=== PATIENT | male | born 1990 | race Caucasian/White ===

== ENCOUNTER 2016-07-19 12:45 | Emergency (ER) | payer OTHER ==
[~2016-07-19] VITALS: Ht 180.3 cm; Wt 107.5 kg
[~2016-07-19 12:45] MED LIST: BEN50 PO; CLOT30CR24 TOP; FL.05O60 TOP
[2016-07-19 13:04] VITALS: Ht 180.3 cm; Wt 107.5 kg
[2016-07-19] MEDS ORDERED: BEN50 PO (13:46)
[2016-07-19] MEDS ORDERED: PRED20TA PO (13:46)
--- NOTE | 2016-07-19 13:52 | ERD ---
ER Documentation Chief Complaint Date/Time DATE: 07/19/16 TIME: 13:48 Chief Complaint FULL BODY RASH X2 DAYS HPI [id number] male presents to the emergency department today complaining of a rash with a plastic months. Patient states he went to a production utility worker approximately one month ago and was given triamcinolone cream. States that the rash was on his hands and feet and his groin area. He states that he has any rash on the left side of his neck that is itching him and really bothering him. States he has been given Clortrimazole and clobetasol for the rash. Denies fevers or chills, chest pain or shortness of breath. ROS All systems reviewed and are negative except as per history of present illness. Medications Home Meds Active Scripts Diphenhydramine Hcl* (Benadryl*) 50 Mg Cap, 50 MG PO Q6 Y for ITCHING, #30 CAP Prov:AYDEE KEN PA-C 07/19/16 Prednisone* (Prednisone*) 20 Mg Tab, 40 MG PO DAILY for 5 Days, TAB Prov:AYDEE KEN PA-C 07/19/16 Clotrimazole* (Clotrimazole* AF) 1% - 30 Gm Cream.gm., 1 APPLIC TOP BID for 7 Days, TUB Prov:BRANDON DEE 06/08/16 Fluocinonide* (Lidex* Oint) 60 Gm Oint, 1 APPLIC TOP BID for 3 Days, EA Prov:BRANDON DEE 06/08/16 Diphenhydramine Hcl* (Benadryl*) 50 Mg Cap, 50 MG PO Q6H Y for ITCHING/RASH, # 30 CAP Prov:YARON CHILDERS PA-C 04/10/16 Clotrimazole* (Clotrimazole* AF) 1% - 30 Gm Cream.gm., 1 APPLIC TOP BID for 7 Days, TUB Prov:YARON CHILDERS PA-C 04/10/16 Allergies Allergies: Coded Allergies: No Known Allergy (Unverified , 04/10/16) PMhx/Soc History of Surgery: No Anesthesia Reaction: No Hx Neurological Disorder: No Hx Respiratory Disorders: No Hx Cardiac Disorders: No Hx Psychiatric Problems: No Hx Miscellaneous Medical Probl: No Hx Alcohol Use: Yes Hx Substance Use: No Hx Tobacco Use: Yes Smoking Status: Current some day smoker Physical Exam Vitals Vital Signs Date Time Temp Pulse Resp B/P Pulse Ox O2 Delivery O2 Flow Rate FiO2 07/19/16 13:04 98.0 90 16 144/98 97 Physical Exam Const: No acute distress, talkative Head: Atraumatic Eyes: Normal Conjunctiva ENT: Normal External Ears, Nose and Mouth. Neck: Full range of motion..~ No meningismus. Resp: Clear to auscultation bilaterally Cardio: Regular rate and rhythm, no murmurs Abd: Soft, non tender, non distended. Normal bowel sounds Skin: On the rash in groin area and on the feet with scaling and dried skin.left side of neck with erythematous rash that appears to be eczema. Back: No midline or flank tenderness Ext: No cyanosis, or edema Neur: Awake and alert Psych: Normal Mood and Affect Procedures/MDM This 25-year-old male who presents to the emergency department today complaining of a rash. Patient had a fungal rash for the past 6 months and has been seen by production utility worker and given medication. Patient has a new rash on the left side of his neck that appears to be eczema at this time. Rash does not appear to be fungal. Patient is afebrile and otherwise well-appearing.Low suspicion for Sepsis, cellulitis, SJS, deep space infection, viral exanthem. Vision is talkative in the exam room. His oxygen saturation is 97%. There is no evidence of anaphylaxis or angioedema. Patient was given a prescription for Benadryl and course of prednisone. Patient was instructed to follow-up with dermatology. I have given him a list of resources. At this time the patient is stable for discharge and outpatient management. Patient should follow up with their PCP in the next 1-2 days. They may return to the emergency department sooner for any persistent or worsening of symptoms. Patient understood and agreed with the plan. Dr. Mahoney has seen and evaluated the patient and he is in agreement with plan. Departure Diagnosis: Primary Impression: Rash and other nonspecific skin eruption Condition: Fair Patient Instructions: Self-Care for Skin Rashes Referrals: IRENA FISCHER MD,ELIZABETH WALTERS,RAJAN KRISHNA,RONALDO LÓPEZ,SHAHRAM STAFFORD,RAINA HERNANDEZ Additional Instructions: Call your primary care doctor TOMORROW for an appointment during the next 1-2 days for referral back to dermatology.See the doctor sooner or return here if your condition worsens before your appointment time. Make an appointment with production utility worker Take prednisone as prescribed Benadryl for itching. Do not drive while taking this medication. AYDEE KEN PA-C Jul 19, 2016 13:52
== END 2016-07-19 14:01 | disposition home or self-care (01) ==
LOC: FTE 12:45
DX: R21 Rash and other nonspecific skin eruption (principal); F17.210 Nicotine dependence, cigarettes, uncomplicated
CPT/HCPCS: 99283

== ENCOUNTER 2017-03-21 11:28 | Emergency (ER) | payer OTHER ==
[~2017-03-21] VITALS: Ht 182.9 cm; Wt 99.5 kg
[~2017-03-21 11:28] MED LIST changes: +PRED20TA PO
[2017-03-21 11:30] VITALS: Ht 182.9 cm; Wt 99.5 kg
[2017-03-21] MEDS ORDERED: DIPHENHYDRAMINE 25 MG CAP PO ONE (12:30)
[2017-03-21] MEDS ORDERED: FAMOTIDINE 20 MG TAB PO ONE (12:30)
[2017-03-21] MEDS ORDERED: predniSONE 20 MG TAB PO ONE (12:30)
[2017-03-21] MEDS ORDERED: MED4DP PO (12:40)
[2017-03-21] MEDS ORDERED: BEN25 PO (12:41)
[2017-03-21] MEDS ORDERED: FAMO-96 PO (12:41)
--- NOTE | 2017-03-21 14:43 | ERD ---
ER Documentation Chief Complaint Date/Time DATE: 03/21/17 TIME: 14:40 Chief Complaint RASH ON CHEST AND B/L HANDS SINCE WEDNESDAY HPI This is a 26-year-old male presents to the ER with a rash that started on . Patient works in [employer] states he has got allergic reactions in the past and this is similar. Rash is located on his chest, stomach, back and on his dorsal hands. Rash is very itchy. Patient has not taken anything for the rash. Patient states that being out in the sun makes it worse. Patient denies any facial swelling or difficulty in breathing or chest pain.He has not had any fevers or chills. ROS 12 point review of systems was done, all negative except per HPI. Medications Home Meds Active Scripts Famotidine* (Pepcid*) 20 Mg Tablet, 20 MG PO BID for 4 Days, TAB Prov:BRANDON DEE 03/21/17 Diphenhydramine Hcl* (Benadryl*) 25 Mg Cap, 25 MG PO Q6, #30 CAP Prov:BRANDON DEE 03/21/17 Methylprednisolone* (Medrol* DOSE PACK) 4 Mg/Dose-Pack Tab.ds.pk, 4 MG PO . DIRECTED for 5 Days, PACKET Prov:BRANDON DEE 03/21/17 Diphenhydramine Hcl* (Benadryl*) 50 Mg Cap, 50 MG PO Q6 Y for ITCHING, #30 CAP Prov:AYDEE KEN PA-C 07/19/16 Prednisone* (Prednisone*) 20 Mg Tab, 40 MG PO DAILY for 5 Days, TAB Prov:AYDEE KEN PA-C 07/19/16 Clotrimazole* (Clotrimazole* AF) 1% - 30 Gm Cream.gm., 1 APPLIC TOP BID for 7 Days, TUB Prov:BRANDON DEE 06/08/16 Fluocinonide* (Lidex* Oint) 60 Gm Oint, 1 APPLIC TOP BID for 3 Days, EA Prov:BRANDON DEE 06/08/16 Diphenhydramine Hcl* (Benadryl*) 50 Mg Cap, 50 MG PO Q6H Y for ITCHING/RASH, # 30 CAP Prov:YARON CHILDERS PA-C 04/10/16 Clotrimazole* (Clotrimazole* AF) 1% - 30 Gm Cream.gm., 1 APPLIC TOP BID for 7 Days, TUB Prov:YARON CHILDERS PA-C 04/10/16 Allergies Allergies: Coded Allergies: No Known Allergy (Unverified , 04/10/16) PMhx/Soc History of Surgery: No Anesthesia Reaction: No Hx Neurological Disorder: No Hx Respiratory Disorders: No Hx Cardiac Disorders: No Hx Psychiatric Problems: No Hx Miscellaneous Medical Probl: No Hx Alcohol Use: Yes Hx Substance Use: No Hx Tobacco Use: Yes Smoking Status: Current every day smoker Physical Exam Vitals Vital Signs Date Time Temp Pulse Resp B/P Pulse Ox O2 Delivery O2 Flow Rate FiO2 03/21/17 11:30 98.6 95 18 167/97 96 Physical Exam GENERAL: The patient is well developed and appropriate for usual state of health , in no apparent distress. HEENT: Atraumatic. The oropharynx is clear with no erythema or exudates. No lip, tongue, eyes swelling. CHEST: Clear to auscultation bilaterally. There are no rales, wheezes or rhonchi. HEART: Regular rate and rhythm. No murmurs, clicks, rubs or gallops. NEURO: Alert and oriented. . SKIN: Macular rash to the chest, abdomen, back, dorsal hands. Negative Nikolsky sign Results 24 hrs Current Medications Medications (Trade) Dose Ordered Sig/Keisha Route PRN Reason Start Time Stop Time Status Last Admin Dose Admin Prednisone (Prednisone) 60 mg ONCE ONCE PO 03/21/17 12:30 03/21/17 12:31 DC 03/21/17 12:36 Diphenhydramine HCl (Benadryl) 25 mg ONCE ONCE PO 03/21/17 12:30 03/21/17 12:31 DC 03/21/17 12:34 Famotidine (Pepcid) 20 mg ONCE ONCE PO 03/21/17 12:30 03/21/17 12:31 DC 03/21/17 12:35 Procedures/MDM Differential Diagnosis: dermatitis, allergic urticaria, viral exanthem, insect bite, fungal infectio ,viral exanthem, hand foot mouth disease, , impetigo, cellulitis, abscess, indy neha syndrome, meningocemia, necrotizing fasciitis, myositis. Clinical suspcicion for necrotizing fasciitis or myositis is low. There are no skip leasions or pain away from the site of the rash. Clinical suspicion for indy neha syndrome is low. There is not history new medication use or mucosal involvement. Patient was given prednisone, Pepcid, Benadryl here in the ER without any complications and his rash became a little bit better. Patient will be sent home with prednisone, Pepcid, Benadryl. He is to follow-up with his primary care doctor within 1-2 days or return to ER sooner if symptoms worsen. My medical decision making shared with the patient he understands and agrees with plan. Departure Diagnosis: Primary Impression: Rash Condition: Stable Patient Instructions: Self-Care for Skin Rashes Additional Instructions: Call your primary care doctor TOMORROW for an appointment during the next 1-2 days.See the doctor sooner or return here if your condition worsens before your appointment time. BRANDON DEE Mar 21, 2017 14:43
== END 2017-03-21 13:06 | disposition home or self-care (01) ==
LOC: FTE 11:28
DX: R21 Rash and other nonspecific skin eruption (principal); F17.210 Nicotine dependence, cigarettes, uncomplicated
CPT/HCPCS: J7512; Z7502; Z7610; 99283